=== PATIENT | male | born 1970 | race Two or more races ===

== ENCOUNTER 2017-02-07 18:52 | Emergency (ER) | payer SELFPAY ==
[~2017-02-07] VITALS: Ht 177.8 cm; Wt 81.0 kg
[2017-02-07] MEDS ORDERED: KETOROLAC 60MG/2ML VIAL IM ONE (20:30)
[2017-02-07 20:50] VITALS: BP 117/83
== END 2017-02-07 22:51 | disposition home or self-care (01) ==
LOC: ER 19:03
DX: S16.1XXA Strain of muscle, fascia and tendon at neck level, initial encounter (principal); V43.52XA Car driver injured in collision with other type car in traffic accident, initial encounter; Y93.9 Activity, unspecified; Y92.89 Other specified places as the place of occurrence of the external cause; Y99.8 Other external cause status
CPT/HCPCS: 72040; 96372; 99284; J1885

== ENCOUNTER 2022-08-14 02:20 | Emergency (ER) | payer BC ==
[~2022-08-14] VITALS: Ht 170.2 cm; Wt 73.0 kg
[2022-08-14 02:27] VITALS: BP 142/98
[2022-08-14] MEDS ORDERED: KETOROLAC 60MG/2ML VIAL IM ONE (05:00)
[2022-08-14] MEDS ORDERED: METOCLOPRAMIDE HCL 10MG/2ML VIAL IM ONE (05:00)
[2022-08-14] MEDS ORDERED: NAPR-681 PO (06:00)
[2022-08-14] MEDS ORDERED: MECL-159 PO (06:00)
== END 2022-08-14 06:10 | disposition home or self-care (01) ==
LOC: ER 02:29
DX: R51.9 Headache, unspecified (principal); R42 Dizziness and giddiness
CPT/HCPCS: 70450; 96372; 99284; J1885; J2765